=== PATIENT | female | born 1995 | race Caucasian/White ===

== ENCOUNTER → 2016-12-13 | Outpatient (CLI) | payer OTHER | LOC: M LAB 10:05 | PROVIDERS: ATTEND Nurse Practitioner Women's Health | DX: Z11.3 Encounter for screening for infections with a predominantly sexual mode of transmission (principal) ==

== ENCOUNTER → 2017-07-09 | Outpatient (CLI) | payer SELFPAY ==
--- NOTE | 2017-07-09 14:59 | REP ---
LEFT FOOT, FOUR VIEWS: HISTORY: Injury. There is no acute fracture or dislocation. The joint spaces are normal in appearance. IMPRESSION: There is no acute fracture or dislocation. Signed by Jacob Mata MD 07/09/2017 03:48 P
== END ==
LOC: M LRY 14:14
PROVIDERS: ATTEND Physician Assistant
DX: S99.922A Unspecified injury of left foot, initial encounter (principal); X58.XXXA Exposure to other specified factors, initial encounter; Y92.89 Other specified places as the place of occurrence of the external cause; Y93.89 Activity, other specified; Y99.8 Other external cause status

== ENCOUNTER → 2017-11-08 | Outpatient (REF) | payer OTHER | LOC: M SFHCLERA 17:58 | DX: N30.00 Acute cystitis without hematuria (principal) | CPT/HCPCS: 87086 ==

== ENCOUNTER → 2023-11-14 | Outpatient (CLI) | payer OTHER | LOC: M RAD 12:31 | PROVIDERS: ATTEND Internal Medicine Rheumatology | DX: M35.01 Sjogren syndrome with keratoconjunctivitis (principal) ==

== ENCOUNTER → 2023-11-14 | Outpatient (CLI) | payer OTHER | LOC: M CARPUL 12:29 | PROVIDERS: ATTEND Internal Medicine Rheumatology | DX: M35.01 Sjogren syndrome with keratoconjunctivitis (principal); Z72.0 Tobacco use ==